=== PATIENT | female | born 2000 | race Caucasian/White ===

== ENCOUNTER 2019-01-16 20:04 | Emergency (ER) | payer OTHER ==
[~2019-01-16] VITALS: Wt 75.2 kg
[2019-01-16 20:10] VITALS: BP 154/70; PULSE 114; RESP 20
== END 2019-01-16 22:33 | disposition left against medical advice (07) ==
LOC: FTE 20:04
DX: Z53.21 Procedure and treatment not carried out due to patient leaving prior to being seen by health care provider (principal)
CPT/HCPCS: 93005

== ENCOUNTER 2019-02-20 19:48 | Emergency (ER) | payer OTHER ==
[~2019-02-20] VITALS: Wt 72.0 kg
--- NOTE | 2019-02-20 21:42 | ERD ---
ER Documentation Chief Complaint Chief Complaint L THIGH PAIN AND SWELLING AND FIRM FOR 2 DAYS. NO DRAINAGE NOTED HPI 18-year-old female with no past medical surgical history who presents with left- sided thigh pain and swelling over the past 2 days. think she has an abscess at the left thigh inguinal area. Has pain but no reported drainage to area. Has never had an abscess requiring drainage before. Denies fevers, chills, urinary symptoms and is without any other further complaint. ROS All systems reviewed and are negative except as per history of present illness. Medications Home Meds Active Scripts Ibuprofen* (Motrin*) 600 Mg Tab, 600 MG PO Q6H PRN for PAIN AND OR ELEVATED TEMP, #30 TAB Prov:ADDIE CERVANTES PA-C 02/20/19 PMhx/Soc Medical and Surgical Hx: pt denies Medical Hx, pt denies Surgical Hx Hx Alcohol Use: No Hx Substance Use: Yes (MARIJUANA) Hx Tobacco Use: No Smoking Status: Never smoker FmHx Family History: No diabetes, No coronary disease, No other Physical Exam Vitals Vital Signs Date Temp Pulse Resp B/P (MAP) Pulse Ox O2 O2 Flow FiO2 Time Delivery Rate 02/21/19 99.3 93 18 128/72 95 Room Air 00:02 (90) 02/20/19 98.9 112 20 141/70 98 19:59 (93) Physical Exam I have reviewed the triage vital signs. Const: Well nourished, well developed, appears stated age Eyes: PERRL, no conjunctival injection HENT: NCAT, Neck supple without meningismus CV: RRR, Warm, well-perfused extremities RESP: CTAB, Unlabored respiratory effort GI: soft, non-tender, non-distended, no masses MSK: No gross deformities appreciated Skin: Warm, dry. No rashes. L thigh inguinal region with small fixed nodule, mild erythema, tender to palpation Neuro: grossly non focal Psych: Appropriate mood and affect. Results 24 hrs Current Medications Medications Dose Sig/John Start Time Status Last (Trade) Ordered Route PRN Stop Time Admin Dose Reason Admin Lidocaine 10 ml ONCE ONCE 02/20/19 DC (Xylocaine SC 22:30 1% (Mdv) 20 02/20/19 22:31 ml) Procedures/MDM 18 Yo F who presents with L thigh pain concern for abscess of inner thigh. US of are of soft tissue with likely lymphoid tissue, no obvious collections war ranting drainage. Pt is non toxic appearing and has no fevers. She is discharged with instructions to follow up with PMD and referral to appropriate specialist for continued care. Her symptoms do not warrant further emergent work up or treatment. DISPOSITION PLAN: We discussed follow up with the patient's primary care doctor within 24 to 48 hours. Patient counseled regarding my diagnostic impression and care plan. Prior to discharge all questions answered. Pt agrees with treatment plan and understands strict return precautions. Precautionary instructions provided including instructions to return to the ER if not improving or for any worsening or changing symptoms or concerns. Departure Diagnosis: Primary Impression: Acute abscess Condition: Stable ADDIE CERVANTES PA-C Feb 20, 2019 21:42
[2019-02-20] MEDS ORDERED: LIDOCAINE 1% (MDV) 20 ML INJ SC ONE (22:30)
[2019-02-20] MEDS ORDERED: IBUP-1542 PO (23:13)
[2019-02-21 00:02] VITALS: BP 128/72; PULSE 93; RESP 18
== END 2019-02-21 00:03 | disposition home or self-care (01) ==
LOC: FTE 19:48
DX: L02.416 Cutaneous abscess of left lower limb (principal)
CPT/HCPCS: 76536; Z7502; Z7610